=== PATIENT | female | born 1965 | race Caucasian/White ===

== ENCOUNTER 2021-11-19 08:49 | Outpatient (CLI) | payer OTHER | END 2021-11-19 08:50 | disposition home or self-care (01) | LOC: MADULT 08:49 | PROVIDERS: ATTEND Internal Medicine | DX: K80.20 Calculus of gallbladder without cholecystitis without obstruction (principal); K76.0 Fatty (change of) liver, not elsewhere classified | CPT/HCPCS: 76705 ==